=== PATIENT | female | born 1945 ===

== ENCOUNTER 2022-02-08 19:39 | Emergency (ER) | payer MEDICARE, OTHER ==
[2022-02-08] MEDS ORDERED: Lidocaine 1%/Epinephrine 1:100K 10 ML VIAL ONE (20:16)
[2022-02-08] MEDS ORDERED: Boostrix 0.5 ML (Tdap) VIAL (>/=7 yrs of age) ONE (20:16)
[2022-02-08] MEDS ORDERED: Bacitracin 1 PK ONE (21:32)
== END 2022-02-08 21:39 | disposition home or self-care (01) ==
LOC: MADERS 19:39
DX: S01.111A Laceration without foreign body of right eyelid and periocular area, initial encounter (principal); W22.8XXA Striking against or struck by other objects, initial encounter; Z23 Encounter for immunization
CPT/HCPCS: 12014; 90471; 90715

== ENCOUNTER 2023-07-15 09:01 | Emergency (ER) | payer MEDICARE ==
[2023-07-15] MEDS ORDERED: Ipratropium/Albuterol 3 ML NEB ONE (10:01)
== END 2023-07-15 11:14 | disposition home or self-care (01) ==
LOC: MADERS 09:01
DX: J20.9 Acute bronchitis, unspecified (principal); I10 Essential (primary) hypertension
CPT/HCPCS: 71046; 93005; J7620